=== PATIENT | female | born 1985 | race Caucasian/White ===

== ENCOUNTER 2016-11-15 17:34 | Emergency (ER) | payer OTHER ==
[2016-11-15 17:40] VITALS: BP 144/71; PULSE 78; TEMP 98.3; BMI 25.0
--- NOTE | 2016-11-15 17:40 | PDOC ---
Rapid Medical Evaluation Chief Complaint: Headache Time Seen by Provider: 11/15/16 17:38 Medical Evaluation: Allergies Allergy/AdvReac Type Severity Reaction Status Date / Time No Known Allergies Allergy Verified 11/15/16 17:37 11/15/16 17:38 Otherwise healthy 31 year old female presenting with two weeks of headache. Some relief with Advil. V/s unremarkable. -Urine -To FT for further evaluation
--- NOTE | 2016-11-15 17:55 | PDOC ---
History of Present Illness - General Chief Complaint: Headache Stated Complaint: HEADACHE Time Seen by Provider: 11/15/16 17:38 History Source: Patient Exam Limitations: No Limitations - History of Present Illness Initial Comments: 11/15/16 18:13 Chief complaint: Left posterior headache radiating down to left neck 2 weeks relieved temporarily by Advil History of present illness: Patient is a 31 year old female with no significant medical history here today complaining of left posterior headache that radiates down to her left side of her neck 2 weeks that is temporarily relieved by Advil. Patient denies any injuries. Patient denies any visual changes any dizziness, any nausea, or vomiting or any other symptoms. Patient reports that she does use his cell phone and tilts her head downward and she does carry her son on her left side he is 2 years old. Patient denies any history of having migraines. She denies any chance of . Currently as a 3 out of 10 aching in nature. Patient does not want pain medication here now 11/15/16 18:44 Timing/Duration: reports: waxing and waning Severity: Yes: moderate Associated Symptoms: reports: other (left sided neck apin ). denies: confusion , fatigue, fever/chills, insomnia, loss of consciousness, muscle spasms, nausea/ vomiting, numbness in legs/feet, paresthesia, ringing in ears, seizures, sleepy , slurred speech, tingling in legs/feet, trouble walking, vision changes, weakness Past History - Past Medical History Allergies/Adverse Reactions: Allergies Allergy/AdvReac Type Severity Reaction Status Date / Time No Known Allergies Allergy Verified 11/15/16 17:37 Home Medications: Ambulatory Orders Cyclobenzaprine HCl [Flexeril 10 mg] 10 mg PO Q8H PRN #21 tablet 11/15/16 Ibuprofen 600 mg PO Q6H PRN #18 tablet 11/15/16 - Psycho/Social/Smoking Cessation Hx Anxiety: No Suicidal Ideation: No Smoking History: Never smoked Have you smoked in the past 12 months: No Information on smoking cessation initiated: No Hx Alcohol Use: No Drug/Substance Use Hx: No Substance Use Type: None Review of Systems - Review of Systems Able to Perform ROS?: Yes Constitutional: No: Symptoms Reported HEENTM: No: Eye Pain, Blurred Vision, Tearing, Recent change in vision, Double Vision, Cataracts Respiratory: No: Symptoms reported Cardiac (ROS): No: Symptoms Reported ABD/GI: No: Symptoms Reported : No: Symptoms Reported Musculoskeletal: Yes: Neck Pain (left lateral neck alessandro n) Integumentary: No: Symptoms Reported Neurological: Yes: Headache (left posterior headache x 2 weeks does not wake her from sleep). No: Paresthesia, Pre-Existing Deficit, Seizure, Tingling, Tremors, Weakness, Unsteady Gait, Ataxia, Dizziness *Physical Exam - Vital Signs Last Vital Signs Temp Pulse Resp BP Pulse Ox 98.3 F 78 18 144/71 99 11/15/16 17:37 11/15/16 17:37 11/15/16 17:37 11/15/16 17:37 11/15/16 17:37 - Physical Exam General Appearance: Yes: Appropriately Dressed HEENT: positive: EOMI, MARIANNA, Normal ENT Inspection, Other (snellen left 20/70, rt. and b/l eyes 20/50) Neck: positive: Tender lateral (left lateral). negative: Lymphadenopathy (R), Rigidity, Tender midline, Thyromegaly Respiratory/Chest: positive: Lungs Clear, Normal Breath Sounds. negative: Chest Tender, Respiratory Distress Cardiovascular: positive: Regular Rhythm, Regular Rate, S1, S2 Neurologic: positive: casting repairer II-XII NML intact, Fully Oriented, Alert, Normal Response, Motor Strength 5/5, Responsive. negative: Numbness, Sensory Deficit Medical Decision Making - Medical Decision Making 11/15/16 18:15 Patient is a 31 year old female with no significant medical history here today complaining of left posterior headache that radiates down to her left side of her neck 2 weeks that is temporarily relieved by Advil. Patient denies any injuries. Patient denies any visual changes any dizziness, any nausea, or vomiting or any other symptoms. Patient reports that she does use his cell phone and tilts her head downward and she does carry her son on her left side he is 2 years old. Patient denies any history of having migraines. She denies any chance of . She does wear glasses for distance will do eye exam Left posterior headache with radiation down left neck 2 weeks Plan: Snellen test without glasses left 20/70, rt. 20/50 ou 20/50 with glasses os 2/15, ou 20.15 and od 20/25 ibuprofen 600 mg every 6 hrs prn pain flexeril 10 mg po q 8 hr. prn neck pain with spasm follow up with PCP 11/15/16 18:38 11/15/16 18:45 *DC/Admit/Observation/Transfer Diagnosis at time of Disposition: Neck pain on left side Headache Qualifiers: Headache type: unspecified Headache chronicity pattern: unspecified pattern Intractability: not intractable Qualified Code(s): R51 - Headache - Discharge Dispostion Disposition: HOME Condition at time of disposition: Stable - Patient Instructions Additional Instructions: Follow up with your primary care doctor as soon as possible Avoid carrying her son on the left side constantly and avoid looking downard Return to emergency room if symptoms worsen or new symptoms develop Patient voiced understanding of discharge instructions and all questions were answered
== END 2016-11-15 18:58 | disposition home or self-care (01) ==
LOC: JERFT 17:34
DX: R51 Headache (principal)
CPT/HCPCS: 84703; 99281-25